=== PATIENT | female | born 1995 | race Caucasian/White ===

== ENCOUNTER 2017-10-10 07:51 | Emergency (ER) | payer OTHER ==
[~2017-10-10] VITALS: Ht 167.6 cm; Wt 72.6 kg
[~2017-10-10 07:51] MED LIST: ALPRAZOLAM 0.0.25 M1 PO; AMITRIPTYLINE H50 M3 PO; CIPROFLOXACIN500 M1 PO; CIPROFLOXACIN500 M3 PO; HYDROCODONE-AP1 EAC6 PO; IBUPROFEN 800800 MG PO; LANSOPRAZOLE30 MG PO; LEXAPRO 10 MG T10 M2 PO; NOHOMEMEDICATIONS; NORCO 5-325 TA1 EACH PO; ONDANSETRON HCL4 M3 PO; PERCOCET 5-3251 EACH PO; PREVACID15 MG; TRANSDERM-SCO1 PATC1; XANAX 0.25 MG0.25 MG PO; XANAX 0.5 MG0.5 M1 PO; ZOFRAN ODT4 MG PO; ZOFRAN4 MG PO
[2017-10-10 08:33] LABS: HEMOGLOBIN 12.7 gm/dL (12.0-15.0); NUCLEATED RBCS 0 /100WBC
[2017-10-10 08:36] LABS: HEMATOCRIT 36.8 % (37.0-47.0); MCH 32.2 pg (26.0-34.0); MCHC 34.4 g/dL (28.0-37.0); MCV 93.6 fL (80.0-100.0); PLATELET COUNT* 228 thou/uL (150-400); RBC 3.93 mil/uL (4.20-5.00); RDW-CV 13.2 % (10.5-14.5); WBC 16.6 thou/uL (4.0-11.0)
[2017-10-10 08:49] LABS: CALCIUM 8.6 mg/dL (8.5-10.1); CREATININE 0.8 mg/dL (0.6-1.3); POTASSIUM 3.1 mmol/L (3.5-5.1)
[2017-10-10 08:54] LABS: ALBUMIN 3.4 g/dL (3.4-5.0); TOTAL BILIRUBIN 0.3 mg/dL (<0.1-1.0); TOTAL PROTEIN 6.7 g/dL (6.4-8.2)
[2017-10-10 09:10] LABS: ABSOLUTE LYMPHOCYTES 1.3 thou/uL (0.8-5.3); ABSOLUTE MONOCYTES 1.2 thou/uL (0.0-1.2); ABSOLUTE NEUTROPHILS 13.9 thou/uL (1.6-8.1)
[2017-10-10 09:14] LABS: CLUMPED PLTS FEW; PLATELET ESTIMATE ADEQUATE
[2017-10-10 10:20] LABS: URINE BILIRUBIN NEGATIVE (Negative); URINE BLOOD 3+ (Negative); URINE CLARITY CLEAR; URINE COLOR YELLOW; URINE GLUCOSE-RANDOM NEGATIVE (Negative); URINE KETONES NEGATIVE (Negative); URINE LEUKOCYTES-REFLEX NEGATIVE (Negative); URINE NITRITE-REFLEX NEGATIVE (Negative); URINE PROTEIN TRACE (Negative); URINE SPECIFIC GRAVITY 1.015 (1.005-1.030); URINE UROBILINOGEN 0.2 E.U./dl (0.2-1.0)
[2017-10-10 10:27] LABS: CASTS None Seen /LPF (None Seen); CRYSTALS None Seen /LPF (None Seen); MUCUS 0-3 Light strn/LPF (None Seen); SQUAMOUS 4-10 Moderate /LPF (0-3); URINE RBC >20 Many /HPF (0-2)
[2017-10-10 10:28] LABS: URINE WBC-REFLEX >25 Many /HPF (0-5)
[2017-10-10 10:29] LABS: BACTERIA-REFLEX 1-9 Few /HPF (None Seen)
[2017-10-10] MEDS ORDERED: ZOFRAN ODT4 MG SUBLING (10:33)
[2017-10-10 11:00] VITALS: BP 125/81
[2017-10-10] MEDS ORDERED: CIPROFLOXACIN500 M1 PO (11:02)
[2017-10-13 18:22] LABS: BLASTS 0 %
== END 2017-10-10 11:07 | disposition home or self-care (01) ==
LOC: M.ERS 07:51
PROVIDERS: Family Medicine
DX: N39.0 Urinary tract infection, site not specified (principal); K59.00 Constipation, unspecified; R19.7 Diarrhea, unspecified; R11.10 Vomiting, unspecified; Z88.1 Allergy status to other antibiotic agents; Z88.5 Allergy status to narcotic agent; Z88.0 Allergy status to penicillin; Z88.2 Allergy status to sulfonamides

== ENCOUNTER 2018-01-05 08:38 | Emergency (ER) | payer OTHER ==
[~2018-01-05] VITALS: Ht 170.2 cm; Wt 65.8 kg
[~2018-01-05 08:38] MED LIST changes: +ZOFRAN ODT4 MG SUBLING
[2018-01-05 10:51] VITALS: BP 104/65
== END 2018-01-05 10:53 | disposition home or self-care (01) ==
LOC: M.ERS 08:38
DX: S40.012A Contusion of left shoulder, initial encounter (principal); S20.229A Contusion of unspecified back wall of thorax, initial encounter; F17.210 Nicotine dependence, cigarettes, uncomplicated; Z88.1 Allergy status to other antibiotic agents; Z88.0 Allergy status to penicillin; Z88.2 Allergy status to sulfonamides; Z88.5 Allergy status to narcotic agent; V89.2XXA Person injured in unspecified motor-vehicle accident, traffic, initial encounter; Y93.89 Activity, other specified; Y92.89 Other specified places as the place of occurrence of the external cause; Y99.8 Other external cause status

== ENCOUNTER 2018-01-18 00:52 | Emergency (ER) | payer OTHER ==
[~2018-01-18] VITALS: Ht 167.6 cm; Wt 65.8 kg
[2018-01-18 01:28] LABS: ABSOLUTE EOSINOPHILS 0.1 thou/uL (0.0-0.7); ABSOLUTE LYMPHOCYTES 2.5 thou/uL (0.8-5.3); ABSOLUTE MONOCYTES 0.6 thou/uL (0.0-1.2); ABSOLUTE NEUTROPHILS 4.3 thou/uL (1.6-8.1); BASOPHILS 0.5 %; EOSINOPHILS 1.9 %; HEMOGLOBIN 11.5 gm/dL (12.0-15.0); LYMPHOCYTES 32.9 %; MCH 31.9 pg (26.0-34.0); MCHC 33.8 g/dL (28.0-37.0); MCV 94.3 fL (80.0-100.0); MONOCYTES 7.4 %; MPV 7.4 fl. (7.2-11.1); NUCLEATED RBCS 0 /100WBC; PLATELET COUNT* 217 thou/uL (150-400); POLYS 57.3 %; RBC 3.61 mil/uL (4.20-5.00); RDW-CV 12.5 % (10.5-14.5); WBC 7.5 thou/uL (4.0-11.0)
[2018-01-18 01:40] LABS: CALCIUM 8.4 mg/dL (8.5-10.1); CREATININE 0.8 mg/dL (0.6-1.3)
[2018-01-18 01:45] LABS: ALBUMIN 3.2 g/dL (3.4-5.0); TOTAL BILIRUBIN 0.2 mg/dL (<0.1-1.0); TOTAL PROTEIN 6.7 g/dL (6.4-8.2)
[2018-01-18 02:30] VITALS: BP 109/72
--- NOTE | 2018-01-19 09:37 | EKG ---
[place] [address] ELECTROCARDIOGRAM REPORT Name: JESIKA NEGRON Room: [facility]#: [id number] Admission: 01/18/18 Attend Phys: Discharge: 01/18/18 Date of : [birth year] Report #: [id number] THIS REPORT FOR: //name// [facility] ED Test Date: 2018-01-18 Test Time: 02:10:51 Pat Name: JESIKA NEGRON Department: Room: Gender: F Service Aide: ANTOINE : 1995 Requested By: Kavitha Arvizu Order Number: [id number] MD: Jose R Howard Measurements Intervals [place] Rate: 89 P: 45 WV: 162 QRS: 47 QRSD: 95 T: 25 QT: 375 QTc: 457 Interpretive Statements Sinus rhythm Borderline Q waves in lateral leads Baseline wander in lead(s) V2 Compared to ECG 11/11/2012 10:19:56 Sinus bradycardia no longer present Electronically Signed On 01-19-2018 9:37:18 CDT by Jose R Howard [email or web address] <ELECTRONICALLY SIGNED> By: Jose R Howard MD, FACC 01/19/18 0937 0210 Jose R Howard MD, [facility] /EPI
== END 2018-01-18 02:34 | disposition home or self-care (01) ==
LOC: M.ERS 00:52
PROVIDERS: Personal Emergency Response Attendant
DX: T40.1X1A Poisoning by heroin, accidental (unintentional), initial encounter (principal); Y92.89 Other specified places as the place of occurrence of the external cause; F17.210 Nicotine dependence, cigarettes, uncomplicated; Z88.0 Allergy status to penicillin; Z88.2 Allergy status to sulfonamides; Z88.5 Allergy status to narcotic agent; Z88.1 Allergy status to other antibiotic agents